=== PATIENT | female | born 1970 | race Caucasian/White ===

== ENCOUNTER 2022-03-31 11:03 | Day surgery (SDC) | payer MEDICAID, SELFPAY ==
[2022-03-31 10:59] VITALS: BMI 34.4
[2022-03-31 11:41] VITALS: BP 135/77; PULSE 88; RESP 18; TEMP 36.6; O2SAT 99
--- NOTE | 2022-03-31 12:45 | HO.ANESPROP2 ---
HPI - Anesthesia Eval Consult details Narrative: 51 yo female patient for colonoscopy PMFSH Active Problems Active Problems: Increased BMI Smoker Past Medical History Medical History Anxiety and depression Fatty liver Fibromyalgia Hyperlipidemia Leukocytoclastic vasculitis Migraine Shoulder pain Family History Family history of problems with anesthesia: No Surgical History Surgical History History of tubal ligation History of tympanostomy tube placement Hx of cholecystectomy History of Problems with Anesthesia: No Social History Social History Patient Tobacco Use Status: Current everyday Tobacco user Smoked in Last 30 Days: Yes Patient Interested in Nicotine Replacement: No Are you DNR?: No Advance Directives: No Advance Directives Information Provided: Yes Nutrition Risks: No Nutritional Risk Meds Allergies Allergy/AdvReac Type Severity Reaction Status Date / Time bee pollen [bee stings] Allergy Anaphylaxis Verified 03/31/22 11:42 Home Medications Medication Instructions Recorded Confirmed Last Taken Type amitriptyline 10 mg tablet 20 mg PO DAILY 03/30/22 03/30/22 Unknown History clonazepam 0.5 mg disintegrating 0.5 mg PO BEDTIME 03/30/22 03/30/22 Unknown History tablet duloxetine 60 mg capsule,delayed 60 mg PO BID 03/30/22 03/30/22 03/31/22 History release eletriptan 40 mg tablet 40 mg PO USEASDIRECTD 03/30/22 03/30/22 Unknown History lovastatin 40 mg tablet 40 mg PO DAILY 03/30/22 03/30/22 03/31/22 History prochlorperazine maleate 10 mg 10 mg PO TID PRN Vomiting 03/30/22 03/30/22 Unknown History tablet Exam Exam Date and Time: March 31, 2022 1245 Height,Weight and Vital Signs: Height 5 ft 7 in Weight 99.79 kg Last Vital Signs Temp 97.9 F 03/31/22 11:41 Pulse 88 03/31/22 11:41 Resp 18 03/31/22 11:41 BP 135/77 03/31/22 11:41 Pulse Ox 99 03/31/22 11:41 O2 Del Method 03/31/22 11:41 Airway Mallampati Class: II TM Dist: >3cm Neck ROM: Full Loose/Missing/Broken Teeth: No (Denies broken, loose, missing teeth) Heart: RRR Lungs: ? Occasional wheeze Assessment and Plan Assessment Anesthesia Assessment: Anesthesia Plan Discussed and Chart Reviewed Final Anesthetic Review Family History of Problems with Anesthesia: No History of Problems with Anesthesia: No NPO: Yes ASA Class: II Final Preanesthetic Review: No Changes in Pt Med Stat, Meds/Allgs Chart Reviewed, Consent Obtained/Reviewed and Anes Risks/Benef Reviewed Patient Risk: Intermediate Procedure Risk: Low Assessment/Block/Sedation in SS: Assess/Block/Sedation-SS Anesthetic Plan Anesthetic Plan: MAC: Disposition: Standard PACU
--- NOTE | 2022-03-31 12:46 | MHC.SHP ---
Pre-Procedural Eval Section A Date of Service: 03/31/22 The patient is an INPATIENT: No Changes since office visit: No Cold of Flu in the past 2 weeks, No New Medical Problems, No Changes in Medication and No Patient answered all questions The History & Physical has been completed within 30 days and I have reviewed it.: Yes Section B Chief Complaint: Noninfective gastroenteritis and colitis, bleeding Allergies: Allergies Allergy/AdvReac Type Severity Reaction Status Date / Time bee pollen [bee stings] Allergy Anaphylaxis Verified 03/31/22 11:42 Plan I have reviewed the history and physical and performed a pertinent physical examination on my patient. No changes have occurred unless specified. Time Spent With Patient Time: Total time managing care of this patient today ____ minutes.
[2022-03-31 13:19] VITALS: BP 93/45; PULSE 73; RESP 18; TEMP 36.5; O2SAT 98
--- NOTE | 2022-03-31 13:19 | P.BOP_ITS ---
Brief Operative Note Date of Service: 03/31/22 Pre-op diagnosis: rectal bleeding Post-op diagnosis: same Procedure: colonoscopy Surgeon: Enzo Guerrero Anesthesia: MAC Was an Scalehouse Attendant used for this Procedure?: No Estimated blood loss (mL): 5 Pathology: other Condition: stable Disposition: PACU
[2022-03-31 13:34] VITALS: BP 103/41; PULSE 69; RESP 13; TEMP 36.5; O2SAT 96
--- NOTE | 2022-03-31 23:50 | OP_ITS ---
SURGEON: Enzo Guerrero MD INDICATIONS: Rectal bleeding and prior history of colitis. PREOPERATIVE DIAGNOSIS: POSTOPERATIVE DIAGNOSIS: PROCEDURE PERFORMED: Colonoscopy to the terminal ileum with biopsy. ESTIMATED BLOOD LOSS: COMPLICATIONS: ANESTHESIA: Monitored anesthesia care. ASSISTANTS: SPECIMENS: DESCRIPTION OF PROCEDURE: The history and physical was performed. The risks and benefits of the procedure were explained to the patient. An informed consent was obtained. The procedure was performed on 03/31/2022. The Olympus video colonoscope was introduced into the rectum after digital rectal exam was performed and it was found to be normal. The scope was advanced to the cecum without difficulty. The cecum was identified by transillumination, palpation, and identification of ileocecal valve. Examination was performed and the scope was removed. She tolerated the procedure well was taken to the recovery area in stable condition. FINDINGS: The terminal ileum was examined and appeared normal. This was biopsied. The visualized colonic mucosa was normal. There was no endoscopic evidence of colitis. Biopsies were obtained from the right colon, transverse colon, descending colon and rectum as well as sigmoid. There was a 7 mm polyp in the hepatic flexure, which was removed with a cold snare and recovered via suction. Retroflexed examination did show moderate-sized internal hemorrhoids. There was some liquid stool coating the mucosa, which was washed and suctioned as best possible. IMPRESSION: 1. Colon polyp. RECOMMENDATION: 1. Follow up the biopsy results. MD LINCOLN Soto/SEGUN / [id number]
== END 2022-03-31 14:13 | disposition home or self-care (01) ==
PROVIDERS: PCP Nurse Practitioner Adult Health; Visit Provider Internal Medicine Gastroenterology
PROC: 0DJD8ZZ Inspection of Lower Intestinal Tract, Via Natural or Artificial Opening Endoscopic (ICD-10-PCS; CPT 45378; principal; 2022-03-31 12:10)
DX: K62.5 Hemorrhage of anus and rectum (principal); D12.3 Benign neoplasm of transverse colon; K52.9 Noninfective gastroenteritis and colitis, unspecified; K64.8 Other hemorrhoids; M31.0 Hypersensitivity angiitis; M79.7 Fibromyalgia; E78.5 Hyperlipidemia, unspecified; K76.0 Fatty (change of) liver, not elsewhere classified; Z79.899 Other long term (current) drug therapy; Z90.49 Acquired absence of other specified parts of digestive tract; F17.210 Nicotine dependence, cigarettes, uncomplicated
CPT/HCPCS: 45385; 45380; 88305